=== PATIENT | female | born 1940 | race Caucasian/White ===

== ENCOUNTER 2016-06-13 15:37 | Inpatient (IN) | payer MEDICARE ==
--- NOTE | ~2016-06-13 | CONSULT ---
Radiation Oncology Consult [address] [address] [place]. [address] NAME: MAGGIE LIZARRAGA : 41 STATUS : ADM IN PAT#: [id number] AGE: 75 ADM/REG DATE : 06/13/16 MR#: [id number] REPORT SERV DATE: 06/15/16 DICTATED BY: RAUL DEGROOT DATE: 06/15/16 REPORT STATUS : Draft TRANSCRIBED BY: KATHRYN DATE: 06/15/16 RADIATION ONCOLOGY CONSULTATION Radiation Oncology Consult DIAGNOSIS: Metastatic non-small cell lung cancer with bone metastases. HISTORY OF PRESENT ILLNESS: A 75-year-old female with a history of tobacco abuse and non- small cell lung cancer, who presented with progressive pain in her right hip over the past week. The patient reports she lives at home and has had difficulty with her activities of daily living. She has been on continued immunotherapy under the care of Dr. Moses Cedeño with Opdivo. She was admitted to the ER, and a CT of her L-spine and pelvis demonstrated multiple sites of metastatic disease and most notable with a right acetabular lesion with cortical destruction. There is a soft tissue component with involvement of the right femoral head. She has other sites of bony metastases including L1, L3, and bilateral proximal femurs. I am consulted regarding palliative radiation. At today's visit, the patient reports her pain is significantly improved on her current regimen. She is mildly confused limiting her history. She reports the pain has been present for the past several weeks with progression in the past week. She reports this is worse with palpation and exertion. She denies any low back pain or left hip pain. Her pain is particularly focussed in her right hip. She continues to smoke approximately a quarter pack of cigarettes per day. She reports her bowel and bladder functioning normal. She denies any headaches or new neurologic symptoms. She reports her appetite is within normal limits. She denies weight loss. PAST MEDICAL HISTORY: 1. Rheumatoid arthritis. 2. COPD. 3. Stage IV non-small cell lung cancer. PAST SURGICAL HISTORY: 1. Breast biopsy. 2. Colonoscopy. 3. Cholecystectomy. 4. Hysterectomy. 5. Polypectomy. REVIEW OF SYSTEMS: Complete and extended review of system was performed. Pertinent positives noted in the HPI. MEDICATIONS: Medication reconciliation has been reviewed and discussed. Please refer to EMR. ALLERGIES: QUESTIONABLE ALLERGY TO TYLENOL. Radiation Oncology Consult [place] [address] [place]. [address] NAME: MAGGIE LIZARRAGA : 41 STATUS : ADM IN PAT#: [id number] AGE: 75 ADM/REG DATE : 06/13/16 MR#: [id number] REPORT SERV DATE: 06/15/16 DICTATED BY: RAUL DEGROOT DATE: 06/15/16 REPORT STATUS : Draft TRANSCRIBED BY: KATHRYN DATE: 06/15/16 SOCIAL HISTORY: The patient is single and lives alone. She is retired from [employer]. She continues to smoke and has done so since she was a teenager. She denies alcohol or illicit drug use. She lives in [place]. FAMILY HISTORY: Family history is notable for a mother with ovarian cancer. Her father had cardiac disease. PHYSICAL EXAMINATION: ECOG performance status of 2. Pain score 8/10. VITAL SIGNS: Afebrile, respirations 16. Remainder of vital signs stable. Please refer to nursing. GENERAL: Well-developed, elderly female, in no acute distress. She is very pleasant. HEENT: Normocephalic. Extraocular movements intact. Moist mucous membranes. LYMPHATICS: No supraclavicular or cervical lymphadenopathy. RESPIRATORY: Nonlabored breathing. No audible wheezing. GASTROINTESTINAL: Soft, nontender, and nondistended. EXTREMITIES: No edema. Pain with manipulation of the right hip. NEUROLOGIC: Cranial nerves intact. Gait not tested. The patient is sitting in hospital bed. Nonfocal exam. Sensation is intact in all extremities. PSYCH: Verbalized understanding of our discussion. The patient is slow to respond, but appropriate. IMAGING: I personally reviewed the CT which shows a large right acetabular metastases. This is causing local destruction with soft tissue component. ASSESSMENT AND PLAN: A 75-year-old female with stage IV non-small cell lung cancer on Opdivo, who presents with progressive bony metastases in the right hip. I discussed the role of palliative radiation to alleviate her symptoms. Her pain regimen is currently working though she is mildly confused, I suspect secondary to her medications. I will plan a CT simulation today or tomorrow and plan to initiate radiation as quickly as possible for palliative purposes. She understands this is not curative therapy, and our goal would be to decrease her pain associated with the use of her right hip. After thorough discussion of benefits and risks, the patient has agreed to proceed forward. Informed consent was obtained at today's visit. I will plan a simulation as quickly as possible. Please call my office with any questions. I appreciate the opportunity to take part in this patient's care. SANDRO/KATHRYN Raul Degroot MD Radiation Oncology Consult [address] [address] NAME: MAGGIE LIZARRAGA : 41 STATUS : ADM IN PAT#: [id number] AGE: 75 ADM/REG DATE : 06/13/16 MR#: [id number] REPORT SERV DATE: 06/15/16 DICTATED BY: RAUL DEGROOT DATE: 06/15/16 REPORT STATUS : Draft TRANSCRIBED BY: KATHRYN DATE: 06/15/16 / [id number] CC: MD Den Blue M.D. Darrell Johnson, M.D.
--- NOTE | ~2016-06-13 | HP ---
History And Physical [address] [place]. [address] NAME: MAGGIE LIZARRAGA CALDERON : 41 STATUS : ADM IN PAT#: [id number] AGE: 75 ADM/REG DATE : 06/13/16 MR#: [id number] REPORT SERV DATE: 06/16/16 DICTATED BY: JEM EASON DATE: 06/15/16 REPORT STATUS : Draft TRANSCRIBED BY: MODAkin DATE: 06/15/16 DATE OF ADMISSION: 06/13/2016 CHIEF COMPLAINT: Bilateral hip pain. HISTORY: This is a 75-year-old female, known metastatic lung CA who was presented with severe pain. I was first consulted about her earlier this morning. She complains of right greater than left hip and pelvic area pain. She denies any significant musculoskeletal complaints elsewhere. ALLERGIES: ACETAMINOPHEN. MEDICATIONS: See chart. PAST MEDICAL HISTORY: Cataracts, sinusitis, myopia, presbyopia, hypercholesterolemia, right lung cancer, arthritis. PAST SURGICAL HISTORY: Bilateral breast biopsies in 1965 and 1975; right breast biopsy again in 1986; right shoulder joint removed in 1975; Smiley neuroma, 1979; hysterectomy, 1986; cholecystectomy, 2004; lung biopsy, 2008; pneumothorax, 2008; TOSHIA cervical, 2000; TOSHIA back, 2011. SOCIAL HISTORY: Fifty-five pack year history of cigarettes. No alcohol or illicit drug use. She is a . known to me. FAMILY HISTORY: No known anesthetic complications. REVIEW OF SYSTEMS: As above with no other recent illnesses. PHYSICAL EXAMINATION: GENERAL: She is somewhat emaciated, in some pain. Alert and oriented x3. HEENT: Atraumatic, normocephalic. NECK: Supple. CHEST: Symmetric. Lung and chest exam per Medicine. CV: Regular. ABDOMEN: Soft. EXTREMITIES: Both upper extremities without acute trauma. Both lower extremities I did not examine aggressively for the risk of fracture. NEUROVASCULAR: However peripherally intact with somewhat thready pulses. Sensory motor without deficit. IMAGING: X-ray and CT scan: I reviewed the reports and the films at length myself. There is a large right acetabular lesion and bilateral proximal femoral lesions into the intertrochanteric region. History And Physical [address] [address] NAME: MAGGIE LIZARRAGA CALDERON : 41 STATUS : ADM IN PAT#: [id number] AGE: 75 ADM/REG DATE : 06/13/16 MR#: [id number] REPORT SERV DATE: 06/16/16 DICTATED BY: JEM EASON DATE: 06/15/16 REPORT STATUS : Draft TRANSCRIBED BY: KATHRYN DATE: 06/15/16 ASSESSMENT: Bilateral intertrochanteric metastases of the femur with a right acetabular lesion. PLAN: I had a lengthy discussion with the patient. The acetabular lesion is nonoperative, best treated with radiation. Both proximal femoral lesions would be best addressed with prophylactic fixation. I had a lengthy discussion with the patient and we will plan to contact her admitting physician as well as oncologist. DONOVANB/KATHRYN Iman Eason M.D. / [id number] CC: MD Den Blue M.D.
--- NOTE | ~2016-06-13 | DS ---
Discharge Summary [id number] [place]. [address] NAME: MAGGIE LIZARRAGA : 41 STATUS : DIS IN PAT#: [id number] AGE: 75 ADM/REG DATE : 06/13/16 MR#: [id number] REPORT SERV DATE: 06/20/16 DICTATED BY: DATE: REPORT STATUS : Draft TRANSCRIBED BY: MODL DATE: 06/19/16 ADMISSION DATE: 06/13/2016 DISCHARGE DATE: 06/19/2016 DISCHARGE DIAGNOSES: 1. Lytic metastatic disease, status post bilateral intramedullary femoral yury placement. 2. Right acetabular pathological fracture. 3. Hypercoagulopathy. 4. Metabolic acidosis, resolved. 5. Acute blood loss anemia, stable. 6. Encephalopathy, resolved. 7. Hypoalbuminemia. 8. Rheumatoid arthritis. 9. Chronic obstructive pulmonary disease. CONSULTATIONS: 1. Dr. Andi Degroot, Radiation Oncology. 2. Dr. Davon Wilcox, Orthopedic Surgery. PERTINENT TESTS AND PROCEDURES: 1. CT of the pelvis without contrast, 06/13/2016, impression: Lytic metastatic disease to the body of L1 the body of L3, right acetabulum, and bilateral proximal femurs. 2. CT of the lumbar spine without contrast, 06/13/2016, impression: Lytic metastatic disease to the body of L1, L3, right acetabulum, and bilateral proximal femurs. 3. X-ray left femur, 06/15/2016, impression: No evidence of acute left femur abnormality. 4. Right hip x-ray, 06/15/2016, impression: Osteolytic destruction of the superior medial aspect of the right acetabulum without acetabular protrusio. 5. X-ray of a right hip, 06/16/2016, impression: Bilateral intramedullary femoral yury in place with transfixing screw. Osseous destruction involving the right acetabulum. 6. Chest x-ray, 06/18/2016, impression: Continued nodular opacities at the lung apices, right greater than left without appreciable changes since prior examination. No acute cardiopulmonary abnormality appreciated. 7. Urinalysis specimen collected , 06/17/2016, result: Blood large, 32 red blood cells. Otherwise not indicative of infection. CHIEF COMPLAINT UPON ADMISSION: Unrelenting pain, right hip. HOSPITAL COURSE: Please refer to history and physical, dated 06/14/[address] Kobi Marshall for complete details of the patient's initial presentation upon admission and health history. Please also refer to consultations, dated 06/15/2016 and 06/16/[address] Arias Degroot, Radiation Oncology and Dr. Davon Wilcox, Orthopedics. Briefly, the patient is a 75-year-old female with a history of non-small cell lung cancer, stage IV with bone metastases. The patient is under the outpatient care of Dr. Lopes Discharge Summary [address] [address] NAME: MAGGIE LIZARRAGA : 41 STATUS : DIS IN PAT#: [id number] AGE: 75 ADM/REG DATE : 06/13/16 MR#: [id number] REPORT SERV DATE: 06/20/16 DICTATED BY: DATE: REPORT STATUS : Draft TRANSCRIBED BY: MODL DATE: 06/19/16 [place] [facility]. Prior to this admission, the patient had been treated with Opdivo for approximately 10 months. Three to four days prior to this admission, the patient started having progressive pain in her right hip. The patient's only recollection of injury was falling approximately two weeks prior to onset of pain. The pain progressed to the point that the patient could no longer perform her activities of daily living and she presented to the emergency department for further evaluation and treatment. Initial diagnostic workup included imaging that reported pathologic acetabular fracture of right side. The patient was admitted for pain control and surgical consultation. 1. Lytic metastatic disease to bilateral proximal femurs. The patient has a history of non-small cell lung cancer, stage IV with bony metastases. The patient is status post bilateral intramedullary femoral yury/screws. Postoperative day 2, the patient will be followed on an outpatient basis by Orthopedics. 2. Right acetabular pathological fracture. This is secondary to bony metastases in the setting of non-small cell lung cancer, stage IV. Radiation Oncology was consulted. The role of palliative radiation for symptom alleviation was discussed. The patient agreed to proceed forward. The patient has received two treatments during admission and will complete remaining two treatments on an outpatient basis once transfer to [facility] facility. 3. Non-small cell lung cancer, stage IV. The patient is under the outpatient care of Dr. Moses Cedeño at [facility]. Prior to this admission, the patient had been treated with Opdivo for approximately 10 months; however, this medication has been discontinued during this admission secondary to progression despite the treatment. The patient will follow up on outpatient with Dr. Moses Cedeño. 4. Hypercoagulopathy. The patient received one dose of Coumadin 5 mg two days ago status post surgery. The patient's INR climbed from 1 to 4.8. Coumadin has been held since that initial dose and Pharmacy has been following along daily. The patient's INR is slowly trending down and is 4.2 today. The patient will require daily PT and INR checks until ranges normalize and then Coumadin can be restarted per sliding scale level 2 provided by Orthopedics. 5. Acute blood loss anemia. This is mild and likely related to recent surgery. The patient's hemoglobin and hematocrit were reported to be 12.6 and 37 prior to surgery. Hemoglobin and hematocrit trended downward to 9.6 and 27.2, postop. No transfusions were indicated. 6. Metabolic acidosis, resolved. The patient had an anion gap of 16 on 06/18/2016. Lactate was within normal limits. The etiology was unclear, but most likely related to hypovolemia status post surgery. Condition has since resolved. 7. Encephalopathy. The patient suffered from acute onset of encephalopathy, status post surgery related to anesthesia and narcotics. The patient is extremely sensitive to narcotics, and they should be used sparingly, to maintain reasonable pain control. 8. Hypoalbuminemia. This is likely related to decreased p.o. intake. Recommend ProSource 30 mL p.o. three times daily. 9. Rheumatoid arthritis. The patient is on chronic steroids, prednisone 10 mg p.o. daily. 10.COPD. The patient is an active tobacco user. Continue nicotine patch while hospitalized and at [facility] facility. Educated the patient on benefits of Discharge Summary [address] [address] NAME: MAGGIE LIZARRAGA : 41 STATUS : DIS IN PAT#: [id number] AGE: 75 ADM/REG DATE : 06/13/16 MR#: [id number] REPORT SERV DATE: 06/20/16 DICTATED BY: DATE: REPORT STATUS : Draft TRANSCRIBED BY: MODL DATE: 06/19/16 smoking cessation. DISCHARGE CONDITION: At the time of discharge, the patient is hemodynamically stable. DISCHARGE DIET: Regular diet. DISCHARGE MEDICATIONS: 1. Baclofen 10 mg tablet p.o. daily at bedtime. 2. Vitamin D 1000 units p.o. daily. 3. Colace 100 mg tablet p.o. twice daily. 4. Pepcid 20 mg tablet p.o. twice daily. 5. Ferrous sulfate 300 mg p.o. daily with breakfast and supper. 6. Folic acid 1 mg p.o. daily. 7. Neurontin 300 mg tablet p.o. daily at bedtime. 8. Guaifenesin 600 mg LA tablet p.o. twice daily x1 week then p.r.n. 9. Melatonin 6 mg p.o. daily at bedtime. 10.Theragran tablet one tablet with breakfast. 11.Habitrol 14 mg nicotine patch applied topically daily. 12.Pravachol 40 mg tablet p.o. daily. 13.Anoro Ellipta 62.5-25 mcg inhaler one puff inhaled daily. 14.Coumadin per sliding scale. This medication is currently on hold due to elevated INR reported to be 4.2, resume when INR normalizes per sliding scale provided by Orthopedics. 15.Prednisone 10 mg tablet p.o. daily. 16.Tylenol 650 mg p.o. every four hours as needed. 17.Mylanta 30 mL p.o. daily as needed. 18.Dulcolax 15 mg p.o. as needed. 19.Dulcolax 10 mg suppository per rectum as needed. 20.Hydrocodone 7.5/325 mg tablet every four hours as needed. Hold for sedation or confusion. 21.Milk of magnesia 30 mL p.o. as needed. 22.Zofran 4 mg tablet every four hours as needed. 23.MiraLAX 17 g p.o. daily as scheduled, hold for diarrhea. 24.Senokot two tablets p.o. at bedtime as needed. 25.Albuterol two puffs inhaled daily as needed. DISCHARGE INSTRUCTIONS: 1. The patient will be discharged to [facility] facility. 2. Follow up with Radiation Oncology next week to complete remaining two treatment. 3. Follow up with Dr. Wilcox, Orthopedics. MARY/KATHRYN Terri Ramsey, BLUEPRINT MAKER-C Discharge Summary [address] [address] NAME: MAGGIE LIZARRAGA : 41 STATUS : DIS IN PAT#: [id number] AGE: 75 ADM/REG DATE : 06/13/16 MR#: [id number] REPORT SERV DATE: 06/20/16 DICTATED BY: DATE: REPORT STATUS : Draft TRANSCRIBED BY: KATHRYN DATE: 06/19/16 / [id number] CC: MD Den Landeros II, M.D.
--- NOTE | ~2016-06-13 | HP ---
History And Physical [address] [facility] [place]. [address] NAME: MAGGIE LIZARRAGA : 41 STATUS : ADM IN [facility]#: [id number] AGE: 75 ADM/REG DATE : 06/13/16 MR#: [id number] REPORT SERV DATE: 06/14/16 DICTATED BY: GUZMAN SOTO DATE: 06/13/16 REPORT STATUS : Draft TRANSCRIBED BY: MODAkin DATE: 06/13/16 DATE OF ADMISSION: 06/13/2016 CHIEF COMPLAINT: Unrelenting pain on her right hip. HISTORY OF PRESENT ILLNESS: The patient is a 75-year-old female with past medical history of tobacco use, lung cancer x2 with metastasis under the care of Dr. Moses Cedeño, PCP Dr. Poole who presents after having progressive pain in the right hip over the last three to four days despite using some p.o. pain medications. She has been unable to do her ADLs. The patient only recalled having a fall approximately two weeks ago, did not have any symptoms at that time, but four days ago had notable amount of discomfort. Symptoms have been constant, moderate in severity, but continuous; no radiating, but is able to be point tenderness that is sharp. No headache, nausea, vomiting, fever, chills, chest pain, or shortness of breath. Worsened with palpation and exertion, relieved only by rest and lying down. Her symptom is still currently present and reproducible. The patient does have immunocompromise status with chronic steroids and chemotherapy. Additionally uses tobacco continuously at quarter-pack per day since she was in her teens. REVIEW OF SYSTEMS: For additional 10-point review of systems negative except for that noted in the HPI. PAST MEDICAL HISTORY: Lung cancer with metastasis and tobacco use. SURGICAL HISTORY: Multiple breasts biopsies, Smiley's neuroma, and hysterectomy. FAMILY HISTORY: Ovarian cancer and possible heart disease. SOCIAL HISTORY: Single. Still currently quarter-pack per day smoker since she was young. No alcohol or illicits. Retired from [employer]. ALLERGIES: TO TYLENOL, BUT DOES TAKE HYDROCODONE. HOME MEDICATIONS: Albuterol, baclofen, vitamin D, folic acid, Neurontin, [place], centrum, pravastatin, Deltasone, Anoro Ellipta, chemo, Sudafed, and OTC liquid. PHYSICAL EXAMINATION: VITAL SIGNS: Patient's blood pressure 141/75, temperature 98.2, pulse 101, respirations 18, O2 sats 98% on room air. GENERAL: No acute distress. Calm, pleasant at rest. EYES: No scleral icterus. EOMI. ENT: Nares patent. Tongue midline. Moist mucous membranes. SKIN: Does appear older than stated age with dry skin wrinkling. RESPIRATORY: Clear to auscultation. No wheezes or rales. CV: Regular rate. No rubs. GI: Soft, nontender, nondistended. Bowel sounds positive. : Deferred. History And Physical [address] [place]. [address] NAME: MAGGIE LIZARRAGA : 42 STATUS : ADM IN [facility]#: [id number] AGE: 75 ADM/REG DATE : 06/13/16 MR#: [id number] REPORT SERV DATE: 06/14/16 DICTATED BY: GUZMAN SOTO DATE: 06/13/16 REPORT STATUS : Draft TRANSCRIBED BY: KATHRYN DATE: 06/13/16 MUSCULOSKELETAL: Pain with right hip tenderness, reproducible. Does have sensations in bilateral lower extremities. 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 LYMPH: No cervical, but does have mild left-sided enlarged, possible, lymph node. HEME: No bleeding or bruising. NEURO: Alert and oriented. Moves all extremities x4. PSYCH: Appropriate mood and affect. NECK EXAM: The patient does have left-sided lymph node, which the patient reports she has known this for a while. CT: Pathologic fracture of L3 without retropulsion due to metastasis, there is multiple other lytic metastasis in her lumbar spine and pelvic. LABS: CMP grossly within normal limits, mildly decreased albumin at 2.9, alkaline phosphatase mildly elevated at 121. CBC: WBC count 11.4, H and H are 12.9 and 37.8, platelets 332. BUN and creatinine 17 and 0.76, potassium 4. LFTs within normal limits. ASSESSMENT AND PLAN: 1. Pathologic acetabular fracture, right side. 2. Metastatic lung cancer. 3. Intractable pain. 4. Immunocompromised status. 5. Tobacco use. PLAN: 1. For pathologic acetabular fracture, currently pain control. Does have metastatic component and steroid history. Will likely require rehab, PT evaluation. The patient's fall appears to have happened approximately two weeks ago with pain happening approximately four days ago. The patient reports that she has episodes when she does fall and reports that she usually knows how to roll from these falls. Doubt any operative benefits at this time, but due to patient's discomfort and pain, we will ask additional guidance if any other options for evaluation from Orthopedics for additional input for pain control and support devices if possible to help in the patient's recovery. 2. Metastatic lung cancer, on chemotherapy by Dr. Cedeño. 3. Intractable pain, on chronic steroids. We will have IV p.o. medications available with holding parameters for blood pressure. 4. Immunosuppressed status. Prednisone and chemo are likely component of the pathologic fracture with metastatic disease. 5. Tobacco use. Discussed, counseled, nicotine patch offered. Anticipate greater than two midnight inpatient stay. DDN/CAITLINL Guzman Holcomb History And Physical [address] [address] NAME: MAGGIE LIZARRAGA : 41 STATUS : ADM IN [facility]#: [id number] AGE: 75 ADM/REG DATE : 06/13/16 MR#: [id number] REPORT SERV DATE: 06/14/16 DICTATED BY: GUZMAN SOTO DATE: 06/13/16 REPORT STATUS : Draft TRANSCRIBED BY: MODL DATE: 06/13/16 MD Joanna / [id number]
--- NOTE | ~2016-06-13 | OP ---
Record Of Operation [facility] [address] [place]. [address] NAME: MAGGIE LIZARRAGA : 42 STATUS : ADM IN PAT#: [id number] AGE: 75 ADM/REG DATE : 06/13/16 MR#: [id number] REPORT SERV DATE: 06/17/16 DICTATED BY: JEM EASON DATE: 06/17/16 REPORT STATUS : Draft TRANSCRIBED BY: MODL DATE: 06/17/16 DATE OF PROCEDURE: 06/16/2016 PREOPERATIVE DIAGNOSIS: Bilateral proximal femoral metastases. POSTOPERATIVE DIAGNOSIS: Bilateral proximal femoral metastases. PROCEDURE: Bilateral femoral IM nail. SURGEON: Iman Eason M.D. AIR QUALITY MANAGER: See chart. DESCRIPTION OF PROCEDURE: The patient was taken to the operating room and placed supine on the table in normal fashion without incident. General anesthetic was induced per the anesthesiologist. The patient was carefully positioned, padded, prepped, and draped in normal sterile fashion. Through a small incision, a guidewire was placed on the proximal femur, followed by starter reamer, and this was followed by a ball-tipped guidewire, and checked on multiple AP and lateral views. This was followed by a measuring device and sequential reamers up to a . A 9 mm x 38 yury was placed and impacted and external guide used to create two additional incisions, and placed screws in a crossing pattern, one up into the femoral neck, and one across the trochanter. Before and after pictures were taken. This device was disassembled. Wound was irrigated, closed, and dressed sterilely. We then carefully prepped and draped the opposite side in similar fashion to what the left side had been except that there was not an additional incision made for the trochanteric screw because it was able to be fitted through the original incision. COMPLICATIONS: None. SPECIMENS: None. ESTIMATED BLOOD LOSS: Total between both femurs was less than 100 mL. WTB/MODL Iman Eason M.D. / [id number] CC: MD Den Landeros II, M.D.
[~2016-06-13 15:37] MED LIST: ADVIL PO; ALEVE220 MG PO; FISH-EPA1000 MG PO; FLEX PO; FOLIC PO; LIOR10 PO; MULTIPLE VIT PO; MUSCLE RELAXER PO; NEUR300 PO; PLAQ200B PO; PRAVACHOL40 MG PO; SPIRIVA INH; TREXALL5 MG PO; ULTRAM50 PO; VENTOLIN HFA INH; VIT D 3; VITAMIN D31000 UNIT PO; ZOCOR40 PO
[2016-06-13 16:46] LABS: BASOPHILS 0.2 %; BASOPHILS ABSOLUTE 0.02 10/3/uL (0.0-0.16); EOSINOPHILS 0 %; HEMATOCRIT 37.8 % (36.0-48.0); HEMOGLOBIN 12.9 g/dL (12.0-16.0); IMMATURE GRANULOCYTES 0.3 %; IMMATURE GRANULOCYTES ABSOLUTE 0.03 10/3/uL (0.0-0.11); LYMPHOCYTES 15.3 %; LYMPHOCYTES ABSOLUTE 1.74 10/3/uL (0.67-4.30); MEAN CORPUS HGB CONC 34.1 g/dL (32.0-36.0); MEAN CORPUSCULAR HEMOGLOB 32.7 pg (26.0-34.0); MEAN CORPUSCULAR VOLUME 95.7 fL (80-100); MEAN PLATELET VOLUME 9.9 fL (9.2-13.0); MONOCYTES 6.8 %; MONOCYTES ABSOLUTE 0.77 10/3/uL (0.21-1.20); NEUTROPHILS 77.4 %; NEUTROPHILS ABSOLUTE 8.83 10/3/uL (2.02-8.40); PLATELET COUNT 332 10/3/uL (150-400); RBC DISTRIBUTION WIDTH 13.5 % (12.0-16.0); RED CELL COUNT 3.95 10/6/uL (4.0-5.6)
[2016-06-13 16:47] LABS: MANUAL DIFF NO %; WHITE BLOOD CELLS 11.4 10/3/uL (4.5-10.5)
[2016-06-13 16:59] LABS: BUN (BLOOD UREA NITROGEN) 17 MG/DL (6-23); CALCIUM, SERUM 9.9 MG/DL (8.5-10.4); CHLORIDE, SERUM 98 MMOL/L (96-112); CO2 (CARBON DIOXIDE) 29 MMOL/L (24-34); CREATININE 0.76 MG/DL (0.55-1.02); GFR AFRICAN AMERICAN 90 ML/MIN (>=60); GFR NON AFRICAN AMERICAN 77 ML/MIN (>=60); GLUCOSE, SERUM 91 MG/DL (60-99); SGOT(AST) 13 U/L (5-40); SGPT(ALT) 14 U/L (5-65); SODIUM, SERUM 137 MMOL/L (135-148); TOTAL BILIRUBIN 0.4 MG/DL (0-1.2); TOTAL PROTEIN 6.7 G/DL (6.0-8.5)
[2016-06-13 17:00] LABS: A/G RATIO 0.8 (0.7-1.9); ALBUMIN 2.9 G/DL (3.5-5.0); ALKALINE PHOSPHATASE 121 U/L (45-117); GLOBULIN 3.8 G/DL (2.5-4.1)
[2016-06-13] MEDS ORDERED: ANOROELLIPTA INH (17:39)
[2016-06-13] MEDS ORDERED: NEUR300 PO (17:40)
[2016-06-13] MEDS ORDERED: LIOR10 PO (17:40)
[2016-06-13] MEDS ORDERED: FOLIC PO (17:40)
[2016-06-13] MEDS ORDERED: PRAVACHOL40 MG PO (17:41)
[2016-06-13] MEDS ORDERED: CENTRUM PO (17:41)
[2016-06-13] MEDS ORDERED: CHEMO IV (17:41)
[2016-06-13] MEDS ORDERED: VITAMIN D1000 UNI1 PO (17:42)
[2016-06-13] MEDS ORDERED: P10 PO ×2 (17:42)
[2016-06-13] MEDS ORDERED: PROAIR HFA INH (17:43)
[2016-06-13] MEDS ORDERED: [UNRECOGNIZED DRUG - OTHER] PO (17:43)
[2016-06-13] MEDS ORDERED: [UNRECOGNIZED DRUG - REMARK] PO (17:44)
[2016-06-13] MEDS ORDERED: NORCO1 TA1 PO (17:45)
[2016-06-14 05:23] LABS: BASOPHILS 0.3 %; BASOPHILS ABSOLUTE 0.02 10/3/uL (0.0-0.16); EOSINOPHILS 0.4 %; EOSINOPHILS ABSOLUTE 0.03 10/3/uL (0.0-0.53); HEMATOCRIT 35.6 % (36.0-48.0); HEMOGLOBIN 11.8 g/dL (12.0-16.0); IMMATURE GRANULOCYTES 0.1 %; IMMATURE GRANULOCYTES ABSOLUTE 0.01 10/3/uL (0.0-0.11); LYMPHOCYTES 20.5 %; LYMPHOCYTES ABSOLUTE 1.42 10/3/uL (0.67-4.30); MEAN CORPUS HGB CONC 33.1 g/dL (32.0-36.0); MEAN CORPUSCULAR HEMOGLOB 32.2 pg (26.0-34.0); MEAN PLATELET VOLUME 9.9 fL (9.2-13.0); MONOCYTES 8.1 %; MONOCYTES ABSOLUTE 0.56 10/3/uL (0.21-1.20); NEUTROPHILS 70.6 %; NEUTROPHILS ABSOLUTE 4.89 10/3/uL (2.02-8.40); PLATELET COUNT 310 10/3/uL (150-400); RBC DISTRIBUTION WIDTH 13.8 % (12.0-16.0); RED CELL COUNT 3.67 10/6/uL (4.0-5.6); WHITE BLOOD CELLS 6.9 10/3/uL (4.5-10.5)
[2016-06-14 05:26] LABS: MANUAL DIFF NO %
[2016-06-14 05:40] LABS: CALCIUM, SERUM 9.3 MG/DL (8.5-10.4); CHLORIDE, SERUM 102 MMOL/L (96-112); CO2 (CARBON DIOXIDE) 29 MMOL/L (24-34); CREATININE 0.69 MG/DL (0.55-1.02); GFR AFRICAN AMERICAN 99 ML/MIN (>=60); GFR NON AFRICAN AMERICAN 86 ML/MIN (>=60); GLUCOSE, SERUM 85 MG/DL (60-99); PHOSPHORUS, SERUM 3.5 MG/DL (2.5-4.5); POTASSIUM, SERUM 4.1 MMOL/L (3.5-5.3); SGOT(AST) 13 U/L (5-40); SGPT(ALT) 13 U/L (5-65); SODIUM, SERUM 140 MMOL/L (135-148); TOTAL BILIRUBIN 0.3 MG/DL (0-1.2); TOTAL PROTEIN 5.7 G/DL (6.0-8.5)
[2016-06-14 05:42] LABS: A/G RATIO 0.7 (0.7-1.9); ALBUMIN 2.3 G/DL (3.5-5.0); ALKALINE PHOSPHATASE 103 U/L (45-117); BUN (BLOOD UREA NITROGEN) 13 MG/DL (6-23); GLOBULIN 3.4 G/DL (2.5-4.1)
[2016-06-14 06:52] LABS: ASCORBIC ACID (UR NOT ORDER) NEG (NEG); BILIRUBIN, URINE NEGATIVE (NEG); KETONE, URINE NEGATIVE (NEG); LEUKOCYTE ESTERASE(NOT OR NEG (NEG); WBC (NOT ORDERED) (RFLEX) 1 (0-5)
[2016-06-15 05:33] LABS: BUN (BLOOD UREA NITROGEN) 10 MG/DL (6-23); CALCIUM, SERUM 9.3 MG/DL (8.5-10.4); CHLORIDE, SERUM 100 MMOL/L (96-112); CO2 (CARBON DIOXIDE) 29 MMOL/L (24-34); CREATININE 0.65 MG/DL (0.55-1.02); GFR AFRICAN AMERICAN 101 ML/MIN (>=60); GFR NON AFRICAN AMERICAN 87 ML/MIN (>=60); POTASSIUM, SERUM 3.8 MMOL/L (3.5-5.3); SODIUM, SERUM 138 MMOL/L (135-148)
[2016-06-15 05:34] LABS: GLUCOSE, SERUM 105 MG/DL (60-99)
[2016-06-16 13:21] LABS: BASOPHILS 0.1 %; BASOPHILS ABSOLUTE 0.01 10/3/uL (0.0-0.16); EOSINOPHILS 0 %; HEMATOCRIT 38.8 % (36.0-48.0); HEMOGLOBIN 13.2 g/dL (12.0-16.0); IMMATURE GRANULOCYTES 0.2 %; IMMATURE GRANULOCYTES ABSOLUTE 0.02 10/3/uL (0.0-0.11); LYMPHOCYTES 9.1 %; LYMPHOCYTES ABSOLUTE 0.94 10/3/uL (0.67-4.30); MEAN CORPUSCULAR HEMOGLOB 32.8 pg (26.0-34.0); MEAN CORPUSCULAR VOLUME 96.3 fL (80-100); MEAN PLATELET VOLUME 9.7 fL (9.2-13.0); MONOCYTES 2.6 %; MONOCYTES ABSOLUTE 0.27 10/3/uL (0.21-1.20); NEUTROPHILS ABSOLUTE 9.12 10/3/uL (2.02-8.40); PLATELET COUNT 307 10/3/uL (150-400); RBC DISTRIBUTION WIDTH 13.3 % (12.0-16.0); RED CELL COUNT 4.03 10/6/uL (4.0-5.6)
[2016-06-16 13:22] LABS: MANUAL DIFF NO %; WHITE BLOOD CELLS 10.4 10/3/uL (4.5-10.5)
[2016-06-16 13:36] LABS: BUN (BLOOD UREA NITROGEN) 10 MG/DL (6-23); CHLORIDE, SERUM 97 MMOL/L (96-112); CO2 (CARBON DIOXIDE) 30 MMOL/L (24-34); CREATININE 0.76 MG/DL (0.55-1.02); GFR AFRICAN AMERICAN 90 ML/MIN (>=60); GFR NON AFRICAN AMERICAN 77 ML/MIN (>=60); GLUCOSE, SERUM 100 MG/DL (60-99); SODIUM, SERUM 136 MMOL/L (135-148)
[2016-06-16 21:11] LABS: PROTIME (NOT ORD) 13.3 SEC (12.0-14.5)
[2016-06-17 05:33] LABS: INTERNATIONAL NORMAL RATI 1.1 UNITS (-); PROTIME (NOT ORD) 14.3 SEC (12.0-14.5)
[2016-06-17 05:35] LABS: HEMOGLOBIN 12.6 g/dL (12.0-16.0)
[2016-06-17 05:45] LABS: BUN (BLOOD UREA NITROGEN) 11 MG/DL (6-23); CALCIUM, SERUM 9.2 MG/DL (8.5-10.4); CHLORIDE, SERUM 93 MMOL/L (96-112); CREATININE 0.78 MG/DL (0.55-1.02); GFR AFRICAN AMERICAN 87 ML/MIN (>=60); GFR NON AFRICAN AMERICAN 75 ML/MIN (>=60); GLUCOSE, SERUM 101 MG/DL (60-99); POTASSIUM, SERUM 3.5 MMOL/L (3.5-5.3); SODIUM, SERUM 132 MMOL/L (135-148)
[2016-06-17 05:49] LABS: CO2 (CARBON DIOXIDE) 25 MMOL/L (24-34)
[2016-06-17 18:37] LABS: ASCORBIC ACID (UR NOT ORDER) NEG (NEG); BILIRUBIN, URINE NEGATIVE (NEG); KETONE, URINE 20 MG/DL (NEG); LEUKOCYTE ESTERASE(NOT OR NEG (NEG); WBC (NOT ORDERED) (RFLEX) 1 (0-5)
[2016-06-18 05:34] LABS: BASOPHILS 0.1 %; BASOPHILS ABSOLUTE 0.01 10/3/uL (0.0-0.16); EOSINOPHILS 0 %; HEMATOCRIT 34.6 % (36.0-48.0); IMMATURE GRANULOCYTES 0.5 %; IMMATURE GRANULOCYTES ABSOLUTE 0.05 10/3/uL (0.0-0.11); LYMPHOCYTES 7.8 %; LYMPHOCYTES ABSOLUTE 0.75 10/3/uL (0.67-4.30); MEAN CORPUS HGB CONC 34.7 g/dL (32.0-36.0); MEAN CORPUSCULAR HEMOGLOB 32.6 pg (26.0-34.0); MEAN PLATELET VOLUME 10.2 fL (9.2-13.0); MONOCYTES 7.3 %; NEUTROPHILS 84.3 %; NEUTROPHILS ABSOLUTE 8.08 10/3/uL (2.02-8.40); PLATELET COUNT 279 10/3/uL (150-400); RBC DISTRIBUTION WIDTH 13.2 % (12.0-16.0); RED CELL COUNT 3.68 10/6/uL (4.0-5.6); WHITE BLOOD CELLS 9.6 10/3/uL (4.5-10.5)
[2016-06-18 05:37] LABS: MANUAL DIFF NO %
[2016-06-18 05:48] LABS: BUN (BLOOD UREA NITROGEN) 18 MG/DL (6-23); CALCIUM, SERUM 9.8 MG/DL (8.5-10.4); CHLORIDE, SERUM 96 MMOL/L (96-112); CO2 (CARBON DIOXIDE) 22 MMOL/L (24-34); CREATININE 0.69 MG/DL (0.55-1.02); GFR AFRICAN AMERICAN 99 ML/MIN (>=60); GFR NON AFRICAN AMERICAN 86 ML/MIN (>=60); GLUCOSE, SERUM 83 MG/DL (60-99); POTASSIUM, SERUM 3.5 MMOL/L (3.5-5.3); SODIUM, SERUM 134 MMOL/L (135-148)
[2016-06-18 05:49] LABS: INTERNATIONAL NORMAL RATI 3.8 UNITS (-)
[2016-06-18 05:51] LABS: PROTIME (NOT ORD) 37.1 SEC (12.0-14.5)
[2016-06-18 14:30] LABS: INTERNATIONAL NORMAL RATI 4.8 UNITS (-)
[2016-06-18 14:32] LABS: PROTIME (NOT ORD) 44.4 SEC (12.0-14.5)
[2016-06-19 06:10] LABS: A/G RATIO 0.6 (0.7-1.9); ALBUMIN 2.1 G/DL (3.5-5.0); BUN (BLOOD UREA NITROGEN) 18 MG/DL (6-23); CHLORIDE, SERUM 104 MMOL/L (96-112); CO2 (CARBON DIOXIDE) 26 MMOL/L (24-34); CREATININE 0.68 MG/DL (0.55-1.02); GFR AFRICAN AMERICAN 100 ML/MIN (>=60); GFR NON AFRICAN AMERICAN 86 ML/MIN (>=60); GLOBULIN 3.5 G/DL (2.5-4.1); GLUCOSE, SERUM 90 MG/DL (60-99); SGOT(AST) 30 U/L (5-40); SGPT(ALT) 18 U/L (5-65); SODIUM, SERUM 140 MMOL/L (135-148); TOTAL BILIRUBIN 0.4 MG/DL (0-1.2); TOTAL PROTEIN 5.6 G/DL (6.0-8.5)
[2016-06-19 06:11] LABS: INTERNATIONAL NORMAL RATI 4.2 UNITS (-); PROTIME (NOT ORD) 40.3 SEC (12.0-14.5)
[2016-06-19 06:13] LABS: ALKALINE PHOSPHATASE 119 U/L (45-117); CALCIUM, SERUM 8.6 MG/DL (8.5-10.4)
[2016-06-19 06:29] LABS: BASOPHILS 0 %; EOSINOPHILS 0.4 %; EOSINOPHILS ABSOLUTE 0.03 10/3/uL (0.0-0.53); HEMATOCRIT 27.8 % (36.0-48.0); HEMOGLOBIN 9.6 g/dL (12.0-16.0); IMMATURE GRANULOCYTES 0.7 %; IMMATURE GRANULOCYTES ABSOLUTE 0.05 10/3/uL (0.0-0.11); LYMPHOCYTES 13.7 %; LYMPHOCYTES ABSOLUTE 0.97 10/3/uL (0.67-4.30); MANUAL DIFF NO %; MEAN CORPUS HGB CONC 34.5 g/dL (32.0-36.0); MEAN CORPUSCULAR HEMOGLOB 32.4 pg (26.0-34.0); MEAN CORPUSCULAR VOLUME 93.9 fL (80-100); MEAN PLATELET VOLUME 10.1 fL (9.2-13.0); MONOCYTES 6.9 %; MONOCYTES ABSOLUTE 0.49 10/3/uL (0.21-1.20); NEUTROPHILS 78.3 %; NEUTROPHILS ABSOLUTE 5.54 10/3/uL (2.02-8.40); PLATELET COUNT 248 10/3/uL (150-400); RBC DISTRIBUTION WIDTH 13.7 % (12.0-16.0); RED CELL COUNT 2.96 10/6/uL (4.0-5.6); WHITE BLOOD CELLS 7.1 10/3/uL (4.5-10.5)
[2016-06-19 10:44] LABS: HEMATOCRIT 27.2 % (36.0-48.0); HEMOGLOBIN 9.6 g/dL (12.0-16.0)
[2016-06-19 15:59] LABS: HEMATOCRIT 29.5 % (36.0-48.0); HEMOGLOBIN 10.2 g/dL (12.0-16.0)
== END 2016-06-19 18:09 | DRG 480 ==
LOC: ER 15:37 → 4EA 17:40
PROVIDERS: Emergency Medicine; Internal Medicine; Nurse Practitioner Family; Specialist; Student in an Organized Health Care Education/Training Program
PROC: 0QS904Z Reposition Left Femoral Shaft with Internal Fixation Device, Open Approach (ICD-10-PCS; principal; 2016-06-13)
PROC: 0QS804Z Reposition Right Femoral Shaft with Internal Fixation Device, Open Approach (ICD-10-PCS; 2016-06-13)
DX: C79.51 Secondary malignant neoplasm of bone (principal); G92 Toxic encephalopathy; E87.2 Acidosis; D68.59 Other primary thrombophilia; E88.09 Other disorders of plasma-protein metabolism, not elsewhere classified; C34.90 Malignant neoplasm of unspecified part of unspecified bronchus or lung; M84.550A Pathological fracture in neoplastic disease, pelvis, initial encounter for fracture; D62 Acute posthemorrhagic anemia; J44.9 Chronic obstructive pulmonary disease, unspecified; F17.210 Nicotine dependence, cigarettes, uncomplicated; M06.9 Rheumatoid arthritis, unspecified
CPT/HCPCS: 36415; 71010; 72131; 72170; 72192; 73501-RT; 73552-LT; 77280; 77290; 77295; 77300; 77334; 77336; 77412; 80048; 80053; 81001; 82330; 83605; 83735; 84100; 85014; 85018; 85025; 85610; 86850; 86900; 86901; 93005; 96374; 96375; 97162-GP; 97166-GO; 97530-GP; 97535-GO; 99285; A9270-GY; C1713; C1769; J0690; J1170; J1885; J2270; J2370; J2405; J3010